=== PATIENT | female | born 1955 | race Caucasian/White ===

== ENCOUNTER → 2018-04-24 | Outpatient (CLI) | payer OTHER ==
--- NOTE | 2018-04-24 12:03 | XR ---
EXAMINATION TYPE: XR elbow complete LT DATE OF EXAM: 04/24/2018 CLINICAL HISTORY: pain TECHNIQUE: Frontal, lateral and oblique images of the left elbow are obtained. COMPARISON: None. FINDINGS: There is no acute fracture/dislocation evident of the elbow. No abnormal fat pad signs ar e seen. The overlying soft tissue appears unremarkable. IMPRESSION: There is no acute fracture or dislocation of the elbow. ICD 10 NO FRACTURE, INITIAL EVALUATION
== END | disposition home or self-care (01) ==
LOC: RADXRMAIN 11:33
PROVIDERS: ATTEND Internal Medicine
DX: M25.522 Pain in left elbow (principal)

== ENCOUNTER → 2020-01-10 | Outpatient (CLI) | payer OTHER | END | disposition home or self-care (01) | LOC: LABWHC1 13:31 | PROVIDERS: ATTEND Nurse Practitioner Adult Health | DX: R06.02 Shortness of breath (principal); R50.9 Fever, unspecified | CPT/HCPCS: U0003; C9803 ==

== ENCOUNTER → 2021-06-25 | Outpatient (CLI) | payer MEDICARE ==
--- NOTE | 2021-06-25 11:41 | US ---
EXAMINATION TYPE: US abdomen complete DATE OF EXAM: 06/25/2021 COMPARISON: NONE CLINICAL HISTORY: 66-year-old female [id number] ABD PAIN. RUQ pain TECHNIQUE: Multiple sonographic images of the abdomen are obtained. FINDINGS: EXAM MEASUREMENTS: Liver Length: 11.9 cm Gallbladder Wall: 0.2 cm CBD: 0.5 cm Spleen: 9.6 cm Right Kidney: 12.2 x 4.0 x 5.1 cm Left Kidney: 11.6 x 4.1 x 5.1 cm Pancreas: visualized portions wnl Liver: Homogeneous appearance without focal lesion. Gallbladder: No stones seen. No abnormal distention, wall thickening, or pericholecystic fluid. Evidence for sonographic Henry's sign: No CBD: wnl Spleen: wnl Right Kidney: No hydronephrosis or masses seen Left Kidney: No hydronephrosis or masses seen Upper IVC: wnl Abd Aorta: wnl IMPRESSION: Unremarkable sonographic examination of the abdomen.
== END | disposition home or self-care (01) ==
LOC: RADUSWWP 09:23
PROVIDERS: ATTEND Family Medicine
DX: R10.84 Generalized abdominal pain (principal); R10.11 Right upper quadrant pain
CPT/HCPCS: 76700

== ENCOUNTER → 2022-04-19 | Outpatient (CLI) | payer MEDICARE ==
--- NOTE | 2022-04-19 13:41 | CTL ---
EXAMINATION TYPE: CT Low Dose Lung DATE OF EXAM ORDERED: 04/19/2022 HISTORY: 67-year-old female Z87.891 PERSONAL HISTORY NICOTINE DEPENDENCE. Current smoker, 30 pack-yea r history. Lung cancer screening CT DLP: [address] CTDI: 2.8 mGy Automated exposure control for dose reduction was used. SCREENING VISIT: Baseline COMPARISON: None TECHNIQUE: Low dose computed tomography scan was performed through the chest with coronal and sagitta l reconstructions. CT DIAGNOSTIC QUALITY: Limited, but interpretable FINDINGS: Heart normal size without pericardial effusion. LAD and RCA coronary calcifications are present. Aorta normal caliber with mild atherosclerotic arch calcifications and conventional arch vessel branc angela anatomy. No thoracic lymphadenopathy by CT size criteria. Mild diffuse bronchial wall thickening. Mild centrilobular emphysema. Mild biapical pleural-parenchym al scarring. 3 mm right upper lobe pulmonary nodule, axial image 40. 3 mm peripheral right upper lobe pulmonary nodule, axial image 48. Additional 3 mm lateral right upper lobe pulmonary nodule on the same image, axial image 48. A series of 4 mm and smaller pulmonary nodules at the right midlung along the fissures, axial images 106 and 109 likely intrafissural lymph nodes. A couple 2 mm pulmonary nodules right lower lobe, axial image 141 and 143. No suspicious greater than 4 mm pulmonary nodule is identified. Some strandy areas of atelectasis or scarring especially in the mid and lower lungs. No consolidation or pleural effusion. Visualized upper abdomen shows no gross abnormality by low-dose noncontrast technique. Bones: There is focal dextroconvex scoliosis at the mid thoracic spine with associated severe degener ative disc disease here. Corresponding facet arthropathy. IMPRESSION: 1. LungRADS 2, benign; a number of 4 mm and smaller pulmonary nodules on baseline screening. A few of these likely correspond to intrafissural lymph nodes. No suspicious, greater than 4 mm pulmonary nod ule. 2. COPD with mild emphysema. 3. COPD with LAD and RCA coronary artery calcifications. 4. Focal marked dextroconvex scoliosis of the midthoracic spine with associated degenerative disc dis ease and facet arthropathy. CT LUNG RAD AND CT CHEST RECOMMENDATION: Lung-Rad 2 Benign Appearance or Behavior: Continue annual sc reening with LDCT in 12 months. S Modifier (other clinically significant findings): None
== END | disposition home or self-care (01) ==
LOC: RADCTMAIN 09:13
PROVIDERS: ATTEND Internal Medicine
DX: Z12.2 Encounter for screening for malignant neoplasm of respiratory organs (principal); J43.9 Emphysema, unspecified; I25.10 Atherosclerotic heart disease of native coronary artery without angina pectoris; M51.34 Other intervertebral disc degeneration, thoracic region; M47.814 Spondylosis without myelopathy or radiculopathy, thoracic region; M41.84 Other forms of scoliosis, thoracic region; F17.210 Nicotine dependence, cigarettes, uncomplicated; R91.8 Other nonspecific abnormal finding of lung field
CPT/HCPCS: 71271

== ENCOUNTER → 2022-07-10 | Outpatient (CLI) | payer MEDICARE ==
[~2022-07-10] MED LIST: DENOSUMAB 60 MG/ML 1 ML SYRINGE SQ ONE
[2022-07-10 10:52] VITALS: BP 143/83; PULSE 72; RESP 16; TEMP 98.5
== END ==
LOC: PROCWHC3 10:07
PROVIDERS: ATTEND Internal Medicine
DX: M81.0 Age-related osteoporosis without current pathological fracture (principal); F17.200 Nicotine dependence, unspecified, uncomplicated
CPT/HCPCS: 96372; J0897

== ENCOUNTER → 2023-06-24 | Outpatient (CLI) | payer MEDICARE ==
[2023-06-24] MEDS: DENOSUMAB 60 MG/ML 1 ML SYRINGE SQ NR (11:25)
[2023-06-24 11:50] VITALS: BP 144/76; PULSE 78; RESP 16; TEMP 97.8
== END ==
LOC: PROCWHC3 11:02
PROVIDERS: ATTEND Internal Medicine
DX: M81.0 Age-related osteoporosis without current pathological fracture (principal)
CPT/HCPCS: 96372; J0897

== ENCOUNTER → 2023-06-24 | Outpatient (CLI) | payer MEDICARE ==
--- NOTE | 2023-06-24 13:26 | CTL ---
EXAMINATION TYPE: CT Low Dose Lung DATE OF EXAM: 06/24/2023 12:57 PM CLINICAL INDICATION:Female, 68 years old with history of Z12.2 Lung cancer screening; Z12.31 Screenin g; PERSONAL HX OF NICOTINE DEPENDENCE 1PPD X 30 YEARS CURRENTLY SMOKING , history of tobacco use. COMPARISON: 04/19/2022 TECHNIQUE: Multiple axial non-contrast scans were obtained from approximately the lung apices through the upper abdomen. Coronal and sagittal reformatted images were obtained. Low dose technique was uti lized. CT DLP: 65 mGycm, Automated exposure control for dose reduction was used. CT Contrast: Contrast used: None Oral contrast used: None FINDINGS: ======== Lack of intravenous contrast and low dose technique limits the evaluation of the vascular and soft ti ssue structures. LUNGS: No evidence of pulmonary fibrosis. No evidence of focal consolidation, pneumothorax or pleural effusion. Mild paraseptal and centrilobular emphysema changes. Nodules: RUL: 4 mm series 3 image 69 RML: Intrafissural lymph node series 3 image 127, stable from 2022 RLL: None. TAMIKO: None. LLL: None. AIRWAY: Patent and unremarkable. HEART: Size within normal limits. Severe atherosclerotic ulcerations of the vasculature of the heart. MEDIASTINUM: No gross evidence of adenopathy. VASCULATURE: No aortic aneurysm. MUSCULOSKELETAL: No acute osseous abnormalities, severe scoliosis changes of the spine with multileve l degeneration changes with osteophyte formation disc space narrowing and facet joint arthropathy. SOFT TISSUES/LYMPH NODES: Unremarkable. LOWER NECK: No significant findings. UPPER ABDOMEN: No significant findings. IMPRESSION: 1. Stable pulmonary nodules, no new or enlarging nodules. 2. Mild emphysema changes. 3. Severe coronary artery atherosclerosis. CT LUNG RAD AND CT CHEST RECOMMENDATION: Lung-Rad 2 Benign Appearance or Behavior: Continue annual sc reening with LDCT in 12 months. S Modifier (other clinically significant findings): None Recommend smoking cessation (if current smoker), or continuation of smoking cessation (if prior smoke r). Annual screening for lung cancer with low-dose computed tomography is recommended in adults ages 55 to 77 years who have a 30 pack-year smoking history and currently smoke or have quit within the pa st 15 years. Screening should be discontinued once a person has not smoked for 15 years or develops a health problem that substantially limits life expectancy or the ability or willingness to have curat andre lung surgery. Lung rads 2021 [email or web address]
--- NOTE | 2023-06-27 18:11 | MM ---
Reason for Exam: Screening (asymptomatic). Last mammogram was performed 1 year(s) and 1 month(s) ago. Patient History: Menarche at age 13. First Full-Term at age 26. Hysterectomy at age 33. Postmenopausal. Patient has history of breast feeding. Risk Values: Lulu 5 year model risk: 1.9%. NCI Lifetime model risk: 6.4%. Prior Study Comparison: 07/29/2017 Bilateral MG screening mammo w CAD - 2, [facility]. 11/03/2019 Bilateral MG screening mammo w CAD - 2, [facility]. 05/22/2022 Bilateral MG 3D screening mammo w/cad, [facility]. Tissue Density: The breasts are heterogeneously dense, which may obscure small masses. Findings: Analyzed By CAD. The pattern is symmetrical. There are scattered benign-appearing punctate calcifications bilaterally. A core marker is within the left breast. No suspicious groups of microcalcifications, spiculated or lobular masses, architectural distortion or other secondary signs of malignancy are mammographically apparent. Overall Assessment: Benign, BI-RAD 2 Management: Screening Mammogram of both breasts in 1 year. A negative mammogram report should not preclude additional follow up of suspicious palpable abnormalities. Patient should continue monthly self breast exam. A clinical breast exam by your physician is recommended on an annual basis and results should be correlated with mammographic findings. Electronically signed and approved by: Hemanth Vance D.O. Radiologis
== END | disposition home or self-care (01) ==
LOC: RADMAMWWP 11:36
PROVIDERS: ATTEND Internal Medicine
DX: Z12.2 Encounter for screening for malignant neoplasm of respiratory organs (principal); Z12.31 Encounter for screening mammogram for malignant neoplasm of breast; J43.2 Centrilobular emphysema; I25.10 Atherosclerotic heart disease of native coronary artery without angina pectoris; Z87.891 Personal history of nicotine dependence; Z78.0 Asymptomatic menopausal state
CPT/HCPCS: 71271; 77063; 77067

== ENCOUNTER → 2023-10-25 | Outpatient (CLI) | payer MEDICARE ==
--- NOTE | 2023-10-26 14:05 | XR ---
EXAMINATION TYPE: XR Hip Bilateral and AP pelvis DATE OF EXAM: 10/25/2023 11:27 AM CLINICAL INDICATION:Female, 68 years old with history of M25.551 M25.552 BILATERAL HIP PAIN; [facility] COMPARISON: None. TECHNIQUE: XR Hip Bilateral and AP pelvis; hip was examined in the frontal and lateral projections an d a AP pelvis. FINDINGS: No evidence for acute process, joint dislocation or significant soft tissue swelling. Osteo phyte formation of the superior acetabulum of the hip. There is mild joint space narrowing. IMPRESSION: 1. No evidence for acute process. 2. Mild hip osteoarthrosis.
== END | disposition home or self-care (01) ==
LOC: RADXRWHC 11:09
PROVIDERS: ATTEND Internal Medicine
DX: M16.0 Bilateral primary osteoarthritis of hip (principal)
CPT/HCPCS: 73521

== ENCOUNTER → 2023-11-19 | Outpatient (CLI) | payer MEDICARE ==
[~2023-11-19] MED LIST changes: -DENOSUMAB 60 MG/ML 1 ML SYRINGE SQ ONE; +REGADENOSON 0.4 MG/5 ML SYRINGE IV ONE
--- NOTE | 2023-12-10 15:13 | CA ---
Lexiscan Nuclear Stress Test Report Name: Elvira Roblero Exam Date: 11/19/2023 10:26 Exam Location: [place] Stress Ht (in): 62 Wt (lb): 104 BSA: 1.45 Ordering Phys: IZAIAH MURRAY Referring Phys: TERRI Technologist: Mitch Capellan Age: 68 Gender: F : 1955 Procedure CPT: Indications: ICD-10 Codes: Patient History: Medications: SEE LIST IN FOLDER Meds past 24 hrs: Pretest Chest Pain: STRESS TEST Lexiscan Protocol Exercise Duration (min:sec): 01:[address] Depressions (mm): Angina Score: Borrero Score: Resting HR (bpm): 80 Peak HR (bpm): 98 Resting BP (mmHg): 143 / 66 Peak BP (mmHg): 146 / 61 MPHR: 153 Target HR: 130 % MPHR: 64 METS: 1.0 Total Dose: Peak Dose: Atropine: Double Product: 44111 BP Response: Stress Termination: INFUSION COMPLETE Stress Symptoms: NO SYMPTOMS Stress Summary: ECG ANALYSIS Resting ECG: Sinus rhythm. Normal conduction. No arrhythmias. Nonspecific ST-T abnormality. Stress ECG: No ECG changes from baseline with Lexiscan infusion. CONCLUSIONS No ECG evidence of ischemia with Lexiscan infusion. Nuclear test results to follow. Dr. Maria Del Carmen Haynes MD (Electronically Signed) Final Date: 19 November 2023 12:26
--- NOTE | 2023-12-17 13:33 | NM ---
Elvira Roblero ID: [id number] : 1955 EXAMINATION TYPE: NM stress lexiscan cardiolite DATE OF EXAM: 11/19/2023 COMPARISON: NONE HISTORY: 68-year-old female I to 5.10, history of hypertension, diabetes, heart catheter, hypercholes terolemia, family history of heart disease, current smoker with 20 pack-year history, COPD. TECHNIQUE: After the intravenous administration of 19.5 to mCi Tc 99m Sestamibi - Cardiolite resting SPECT images acquired 30 minutes post injection. The patient received 0.4mg Lexiscan, 25.2 mCi Tc 99 m Sestamibi - Stress images obtained 60 minutes post injection FINDINGS: Review of stress and rest SPECT images demonstrates a small apical defect on rest images n ot seen on stress. Findings compatible with attenuation artifact. Some prominent adjacent GI activity on stress images. Otherwise, no discrete reversibility is seen. Gated analysis shows normal wall mot ion with an estimated left ventricular ejection fraction of 73 %. TID is calculated at 0.94, within normal limits. IMPRESSION: No scintigraphic evidence for reversible ischemia.
== END | disposition home or self-care (01) ==
LOC: RADNMMAIN 08:15
PROVIDERS: ATTEND Internal Medicine
DX: I25.10 Atherosclerotic heart disease of native coronary artery without angina pectoris (principal); E78.00 Pure hypercholesterolemia, unspecified; E11.9 Type 2 diabetes mellitus without complications; I10 Essential (primary) hypertension; J44.9 Chronic obstructive pulmonary disease, unspecified; Z82.49 Family history of ischemic heart disease and other diseases of the circulatory system
CPT/HCPCS: 93017; 78452; A9500; J2785

== ENCOUNTER → 2023-11-26 | Outpatient (CLI) | payer MEDICARE ==
[2023-11-26 16:11] LABS: African American GFR (CKD) >90 (>60 ml/min/1.73 sqM); Blood Urea Nitrogen 13 mg/dL (7-17); Non-African American GFR(CKD) >90 (>60 ml/min/1.73 sqM)
[2023-11-26 16:12] LABS: ALT 12 U/L (4-34); African American GFR (CKD) >90 (>60 ml/min/1.73 sqM); Albumin/Globulin Ratio 1.4; Anion Gap 8 mmol/L; Blood Urea Nitrogen 13 mg/dL (7-17); Calcium 10.6 mg/dL (8.4-10.2); Carbon Dioxide 25 mmol/L (22-30); Chloride 103 mmol/L (98-107); Globulin 3.4 g/dL; Glucose 118 mg/dL (74-99); Lipase 122 U/L (23-300); Non-African American GFR(CKD) >90 (>60 ml/min/1.73 sqM); Sodium 136 mmol/L (137-145); Total Bilirubin 0.8 mg/dL (0.2-1.3)
[2023-11-26 16:39] LABS: AST 38 U/L (14-36); Albumin 4.7 g/dL (3.5-5.0); Alkaline Phosphatase 61 U/L (38-126); Potassium 4.6 mmol/L (3.5-5.1); Total Protein 8.1 g/dL (6.3-8.2)
--- NOTE | 2023-11-26 18:29 | CT ---
EXAMINATION TYPE: CT abdomen pelvis w con DATE OF EXAM: 11/26/2023 COMPARISON: None INDICATION: RLQ pain and abdominal swelling DLP: 645 mGycm, Automated exposure control for dose reduction was used. CONTRAST: 100ml mL of Isovue 300. Study performed with Oral Contrast TECHNIQUE: Axial images were obtained from above the diaphragm to the pubic rami in the axial plane a t 5 mm thick sections. Reconstructed images are reviewed on the computer in the coronal plane. FINDINGS: Limited CT sections are obtained the lung bases. The lung bases are clear. CT ABDOMEN: Ascites is adjacent to the liver and spleen. This extends into the left paracolic gutter. Extensive fluid is within pelvis. Omental caking appears to be within the central pelvis. Large sept ated cysts appear to be within the pelvis. Size measurements are difficult with ill-defined borders a nd difficulty ascites from cysts. Best estimate is 11.3 x 17.5 x 12.9 cm in size. Addition al workup for ovarian neoplasm is recommended. Liver: Normal Spleen: Normal Pancreas: Normal Adrenal glands: The adrenal glands are normal. Gallbladder: Normal Kidneys: No masses are evident. No hydronephrosis is present. No cysts are present. There is a 0.7 cm calcification without obstruction in the inferior pole left kidney. Aorta: Vascular calcification is within the aorta. Inferior vena cava: Normal. CT PELVIS: Loops of bowel within the abdomen and pelvis are normal. There are loops of bowel lacking oral co ntrast or incomplete distention limiting their evaluation. Appendix: Not identified. No dilated tubular structure or inflammatory changes evident. Urinary bladder: Normal. Genitourinary structures: Uterus and ovaries are not discretely identified. Osseous structures: No suspicious lytic or sclerotic lesions. Scoliosis and degenerative disc changes are within the lumbar spine. IMPRESSION: 1. Large septated cysts with suspected omental caking within the mid pelvis. Findings are suggestive for ovarian neoplasm. Additional workup recommended. 2. Nonobstructing 0.7 cm left renal stone. 3. Nonvisualization of the appendix. Clinical management of any suspected appendicitis will be requir ed.`
--- NOTE | 2023-11-26 18:51 | XR ---
EXAMINATION TYPE: XR foot complete RT DATE OF EXAM: 11/26/2023 COMPARISON: None HISTORY: Pain TECHNIQUE: 3 view right foot FINDINGS: No acute osseous abnormality radiographically apparent. There is varus deformity of the dis delia fourth digit. There is narrowing of the first metatarsal phalangeal joint space. Joint spaces are otherwise preserved. No suspicious cortical erosion evident. IMPRESSION: 1. No suspicious acute osseous abnormality radiographically apparent.
== END | disposition home or self-care (01) ==
LOC: RADCTMAIN 14:58
PROVIDERS: ATTEND Internal Medicine
DX: R10.31 Right lower quadrant pain
CPT/HCPCS: 36415; 74177; 80053; 82565; 83690; 84520

== ENCOUNTER 2024-01-13 12:08 | Day surgery (SDC) | payer MEDICARE ==
[~2024-01-13 12:08] MED LIST changes: +HYDROmorphone 0.5 MG/0.5 ML SYRINGE IVP PRN; +Pre Op ABX Message 1 EACH MISC MISCELLANE ONE; -REGADENOSON 0.4 MG/5 ML SYRINGE IV ONE
[2024-01-13] MEDS: IV FLUID CONTINUATION 1,000 ML IV ONE ×2 (12:25→12:54)
[2024-01-13 12:49] VITALS: TEMP 98.2
[2024-01-13] MEDS: LACTATED RINGERS 1,000 ML IV SCH (12:54)
[2024-01-13] MEDS: DEXAMETHASONE SOD PHOSPHATE 4 MG/ML 1 ML VIAL IV ONE (12:56)
[2024-01-13] MEDS: ONDANSETRON 4 MG/2 ML VIAL IVP ONE (12:56)
[2024-01-13 13:03] LABS: Glucose,Whole Blood 88 mg/dL (70-110)
[2024-01-13] MEDS ORDERED: MIDAZOLAM 2 MG/2 ML VIAL ONE (13:29)
[2024-01-13] MEDS ORDERED: LIDOCAINE 1% INJ 10MG/ML (20 ML MDV) ONE (13:29)
[2024-01-13] MEDS ORDERED: fentaNYL (PF) 50 MCG/ML 2 ML AMP ONE (13:29)
[2024-01-13] MEDS ORDERED: PROPOFOL 10 MG/ML 20 ML VIAL IV ONE (13:29)
[2024-01-13] MEDS ORDERED: ceFAZolin 1 GM/50 ML BAG (PMX) ONE (13:29)
[2024-01-13] MEDS ORDERED: KETAMINE HCL IN 0.9 % NACL 50 MG/5 ML SYRINGE ONE (13:29)
[2024-01-13] MEDS: SODIUM CHLORIDE 0.9% 50 ML with ceFAZolin 1,000 MG IV ONE (13:34)
[2024-01-13] MEDS: LIDOCAINE 1% INJ 10MG/ML (20 ML MDV) SQ ONE (13:52)
[2024-01-13 14:31] VITALS: RESP 16
[2024-01-13 15:03] VITALS: BP 131/66; PULSE 68
--- NOTE | 2024-01-13 15:07 | XR ---
EXAMINATION TYPE: XR chest 1V DATE OF EXAM: 01/13/2024 3:04 PM CLINICAL INDICATION: Female, 68 years old with history of mediport placement; [facility] COMPARISON: None TECHNIQUE: XR chest 1V Frontal view of the chest. FINDINGS: Lungs/Pleura: There is no evidence of pleural effusion, focal consolidation, or pneumothorax. Pulmonary vascularity: Unremarkable. Heart/mediastinum: Cardiomediastinal silhouette is unremarkable. Musculoskeletal: No acute osseous pathology. Other findings: None Lines/Tubes: Mkwbyw-a-Xyrl projecting over the right hemithorax with distal tip at the cavoatrial junction. IMPRESSION: 1. Wezchz-n-Ujuj in appropriate position. 2. No acute cardiopulmonary disease/process. 3. COPD changes. [facility], , 01/13/2024 3:05 PM
--- NOTE | 2024-01-13 15:24 | FL ---
EXAMINATION TYPE: FL guided central line placemt DATE OF EXAM: 01/13/2024 2:21 PM COMPARISON: Pre Operative Images if available both CT/MRI or plain film CLINICAL INDICATION: Female, 68 years old with history of PORTACATH PLACEMENT; TECHNIQUE: FL guided central line placemt, multiple fluoroscopic images provided for procedure. Total fluoroscopy time: 14 seconds Total submitted images to PACS: 2 DAP: 1.2521 mGym2 Gycm2 uGym2 cGycm2 or equivalent. FINDINGS: Fluoroscopic imaging for Port-A-Cath insertion no evidence for pneumothorax. Multilevel degeneration changes of the spine. IMPRESSION: 1. No evidence for intraoperative complication. 2. Please see the operative/procedural note for further details. [facility], , 01/13/2024 3:22 PM
--- NOTE | 2024-03-02 22:05 | P.OP ---
Date of Procedure: 01/13/24 Preoperative Diagnosis: cancer Postoperative Diagnosis: cancer Procedure(s) Performed: mediport insertion Implants: mediport Anesthesia: local Surgeon: Jay Kitchen Estimated Blood Loss (ml): 5 Pathology: none sent Condition: stable Disposition: PACU Indications for Procedure: cancer Operative Findings: non significant Description of Procedure: Patient was brought to the operative suite where she was cleaned and draped in sterile fashion. A timeout was performed and everyone agreed with the information recited. Next lidocaine was then used to anesthetize two finger breaths below the clavicle. Next a flushed introducer needle was used top gain access to the subclavian vein. A guidewire was placed through the introducer needle to the SVC. This was confirmed using fluoro. Next a brianda incision was made and a flushed dialator sheath combo was then used over the guidewire. I then made a pocket caudad to this using a #15 blade and electrocautery. Once the pocket was made, a tunneling device was used to gain access to the brianda incision. Next a flushed catheter was placed through the dialator sheath combo under fluoro. This was pulled back just proximal to the svc. The dilator sheath combo was removed. Once I confirmed the position, the distal portion was cut and the mediport was placed and sutured into place. This was confirmed using fluoro. The incision was closed using 4-0 vicryl in an interrupted fashion. The patient was transferred to pacu in stable condition.
== END 2024-01-13 15:44 | disposition home or self-care (01) ==
LOC: OR 12:08
PROVIDERS: ATTEND Surgery
DX: C56.9 Malignant neoplasm of unspecified ovary (principal); I10 Essential (primary) hypertension; E11.9 Type 2 diabetes mellitus without complications; F17.210 Nicotine dependence, cigarettes, uncomplicated; Z79.82 Long term (current) use of aspirin; Z79.84 Long term (current) use of oral hypoglycemic drugs; Z79.85 Long-term (current) use of injectable non-insulin antidiabetic drugs
CPT/HCPCS: 77001; 71045; 36561; C1788; J2250; J1100; J2405; J0690 ×2; J2003; J3010; J2704

== ENCOUNTER → 2024-06-17 | Outpatient (CLI) | payer MEDICARE ==
[2024-06-17 11:49] LABS: African American GFR (CKD) >90 (>60 ml/min/1.73 sqM); Blood Urea Nitrogen 17 mg/dL (7-17); Non-African American GFR(CKD) >90 (>60 ml/min/1.73 sqM)
--- NOTE | 2024-06-17 13:19 | CT ---
EXAMINATION TYPE: CT abdomen pelvis w con CT DLP: 356 mGycm, Automated exposure control for dose reduction was used. 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 TECHNIQUE: Standard CT of the abdomen and pelvis following the administration of 100 cc of Isovue 3 00 IV contrast material and oral contrast. Coronal and sagittal reformats were performed. FINDINGS: LOWER CHEST: No significant findings. ABDOMEN LIVER: Unremarkable GALLBLADDER AND BILE DUCTS: Unremarkable. PANCREAS: Unremarkable. SPLEEN: Unremarkable. ADRENAL GLANDS: Unremarkable. KIDNEYS AND URETERS: No evidence of hydronephrosis. No right renal calculi. The kidneys enhance symme trically. No suspicious lesions. Nonobstructive left renal lower pole 4 mm calculus. Contrast is demo nstrated within both collecting systems and proximal ureters on the delayed phase. PELVIS BLADDER: Unremarkable REPRODUCTIVE: The uterus is surgically absent. Previously seen pelvic masses and resected without sagrario dence or recurrence. ABDOMEN & PELVIS STOMACH AND BOWEL: Stomach and duodenum are unremarkable. Enteric contrast reaches the ascending colo n. No focal bowel wall thickening or surrounding inflammatory changes are identified. The appendix ap pears to be surgically absent. No evidence of bowel obstruction. PERITONEUM: No evidence of pneumoperitoneum or free fluid. No distinct omental deposits identified. VASCULATURE: Mild atherosclerotic calcifications are present throughout the abdominal aorta and its b ranches. No evidence of aortic aneurysm. Few pelvic phleboliths. MUSCULOSKELETAL: No acute osseous abnormalities. No aggressive osseous lesion. Levoscoliotic curvatur e of the lumbar spine with apex at L2-L3. Multilevel degenerative disease most pronounced at L3-L4. LYMPH NODES: No evidence for lymphadenopathy. SOFT TISSUE/ABDOMINAL WALL: Unremarkable IMPRESSION: 1. Postsurgical changes from hysterectomy and resection of pelvic mass. No definitive CT evidence fo r recurrence or metastatic disease. 2. Nonobstructive left renal calculus. [facility], , 06/17/2024 1:16 PM
== END | disposition home or self-care (01) ==
LOC: RADCTMAIN 11:15
PROVIDERS: ATTEND Internal Medicine Hematology & Oncology
DX: C56.9 Malignant neoplasm of unspecified ovary (principal); F17.210 Nicotine dependence, cigarettes, uncomplicated; E11.9 Type 2 diabetes mellitus without complications; I10 Essential (primary) hypertension; N20.0 Calculus of kidney; Z90.710 Acquired absence of both cervix and uterus
CPT/HCPCS: 82565; 84520; 74177; 36415; Q9967

== ENCOUNTER → 2024-07-26 | Day surgery (SDC) | payer MEDICARE ==
[2024-07-21 11:38] VITALS: BMI 20.2
[~2024-07-26] MED LIST changes: +MIDAZOLAM 2 MG/2 ML VIAL ONE; +PROPOFOL 10 MG/ML 20 ML VIAL IV ONE; -Pre Op ABX Message 1 EACH MISC MISCELLANE ONE; +fentaNYL (PF) 50 MCG/ML 2 ML AMP ONE
[2024-07-26 10:35] VITALS: TEMP 98.3
[2024-07-26 10:45] LABS: Glucose,Whole Blood 107 mg/dL (70-110)
[2024-07-26] MEDS: IV FLUID CONTINUATION 1,000 ML IV ONE (10:47)
[2024-07-26] MEDS: LACTATED RINGERS 1,000 ML IV SCH (10:48)
[2024-07-26] MEDS: DEXAMETHASONE SOD PHOSPHATE 4 MG/ML 1 ML VIAL IV ONE (10:55)
[2024-07-26] MEDS: ONDANSETRON 4 MG/2 ML VIAL IVP ONE (10:56)
[2024-07-26] MEDS: ceFAZolin 2 GM in DEXTROSE 5% IN WATER 50 ML IVPB PRN (13:15)
[2024-07-26] MEDS: LIDOCAINE 1%-EPI 1:100,000 20 ML VIAL SQ ONE (13:17)
[2024-07-26 13:41] VITALS: RESP 16
[2024-07-26 14:08] VITALS: BP 136/74; PULSE 84
--- NOTE | 2024-09-02 11:27 | P.OP ---
Date of Procedure: 07/26/24 Preoperative Diagnosis: mediport Postoperative Diagnosis: mediport Procedure(s) Performed: mediport removal Anesthesia: GETA Surgeon: Jay Kitchen Pathology: other (mediport) Indications for Procedure: mediport Operative Findings: n/a Description of Procedure: Patient was brought to the operative suite where he was cleaned and draped in sterile fashion. A timeout was performed and everyone agreed with the information recited. Next the skin was anesthetized and a #15 blade was used to make an incision over the mediport site. Electrocautery was used to dissect down to the mediport. The catheter was grasped with a hemostat and removed out of the patient in a controlled manner. Pressure was held for 5 minutes over the assumed tract. No bleeding was observed. The mediport was passed off to nursing staff. The skin was closed using a combination of 3-0/4-0 vicryl suture. The patient tolerated the procedure well and was transferred to pacu in stable condition.
== END ==
LOC: OR 10:05
PROVIDERS: ATTEND Surgery
DX: Z45.2 Encounter for adjustment and management of vascular access device (principal); C56.9 Malignant neoplasm of unspecified ovary; Z85.43 Personal history of malignant neoplasm of ovary; Z90.722 Acquired absence of ovaries, bilateral
CPT/HCPCS: 36590; J2250; J1100; J0690; J2405; J3010; J2704

== ENCOUNTER → 2024-09-17 | Outpatient (CLI) | payer MEDICARE ==
--- NOTE | 2024-09-17 11:04 | CTL ---
EXAMINATION TYPE: CT Low Dose Lung DATE OF EXAM: 09/17/2024 10:45 AM COMPARISON: 06/24/2023. CLINICAL INDICATION: Female, 69 years old with history of Z12.2 LUNG CA SCR F17.210 CURRENT SMOKER; c urrent smoker, smoked 1 pack a day for 30 yrs, history of tobacco use. TECHNIQUE: Multiple axial non-contrast scans were obtained from approximately the lung apices through the upper abdomen. Coronal and sagittal reformatted images were obtained. Low dose technique was uti lized. MIP were created on a separate workstation and submitted for review. CT DLP: 44.9 mGycm, Automated exposure control for dose reduction was used. CT Contrast: Contrast used: None Oral contrast used: None FINDINGS: Lack of intravenous contrast and low dose technique limits the evaluation of the vascular and soft ti ssue structures. LUNGS: No evidence of pulmonary fibrosis. No evidence of focal consolidation, pneumothorax or pleural effusion. Centrilobular emphysema changes. Nodules: RUL: 4 mm pulmonary nodule seen on prior is no longer visualized possibly atelectasis on prior. RML: 2 mm series 3 image 138.. RLL: None. TAMIKO: None. LLL: None. AIRWAY: Patent and unremarkable. HEART: Size within normal limits. Severe coronary artery calcifications present. MEDIASTINUM: No gross evidence of adenopathy. VASCULATURE: No aortic aneurysm. MUSCULOSKELETAL: Severe scoliosis changes of the spine apex right T6-T7. Mild disc degeneration luo es are present throughout the thoracolumbar spine. SOFT TISSUES/LYMPH NODES: Unremarkable. LOWER NECK: No significant findings. UPPER ABDOMEN: No significant findings. IMPRESSION: 1. No clinically significant pulmonary nodules. No new or enlarging pulmonary nodules. Resolution of prior right upper lobe peripheral pulmonary nodule. 2. Mild emphysema. 3. Dextroscoliosis. 4. Severe coronary artery atherosclerosis. CT LUNG RAD AND CT CHEST RECOMMENDATION: Lung-Rad 2 Benign Appearance or Behavior: Continue annual sc reening with LDCT in 12 months. S Modifier (other clinically significant findings): None Recommend smoking cessation (if current smoker), or continuation of smoking cessation (if prior smoke r). Annual screening for lung cancer with low-dose computed tomography is recommended in adults ages 55 to 77 years who have a 30 pack-year smoking history and currently smoke or have quit within the pa st 15 years. Screening should be discontinued once a person has not smoked for 15 years or develops a health problem that substantially limits life expectancy or the ability or willingness to have curat andre lung surgery. Lung rads 2021 [email or web address] [facility], , 09/17/2024 11:02 AM
== END | disposition home or self-care (01) ==
LOC: RADCTMAIN 10:20
PROVIDERS: ATTEND Internal Medicine
DX: Z12.2 Encounter for screening for malignant neoplasm of respiratory organs (principal); F17.210 Nicotine dependence, cigarettes, uncomplicated; I25.10 Atherosclerotic heart disease of native coronary artery without angina pectoris; J43.2 Centrilobular emphysema; M41.9 Scoliosis, unspecified
CPT/HCPCS: 71271